=== PATIENT | male | born 2000 | race Caucasian/White ===

== ENCOUNTER 2020-11-30 21:27 | Emergency (ER) | payer MEDICAID, OTHER ==
[~2020-11-30] VITALS: Ht 167.6 cm; Wt 81.6 kg
[2020-11-30 21:32] VITALS: BP_SYST 138
[2020-11-30] MEDS ORDERED: FAMOTIDINE 20 MG TABLET PO ONE (23:00)
[2020-11-30] MEDS ORDERED: EPINEPHrine 1 MG/ML AMP IM ONE (23:00)
[2020-11-30] MEDS ORDERED: predniSONE 20 MG TABLET PO ONE (23:00)
[2020-11-30] MEDS ORDERED: EPIN0.3P3 IM (23:46)
[2020-11-30] MEDS ORDERED: PRED20TA PO (23:46)
[2020-11-30] MEDS ORDERED: DIPH25CA83 PO (23:46)
[2020-11-30] MEDS ORDERED: FAMO-132 PO (23:46)
[2020-11-30 23:51] VITALS: BP_SYST 138
== END 2020-11-30 23:51 | disposition home or self-care (01) ==
LOC: SED 21:27
DX: T78.40XA Allergy, unspecified, initial encounter (principal); X58.XXXA Exposure to other specified factors, initial encounter
CPT/HCPCS: 99283; J7512